=== PATIENT | male | born 1965 | race African-American/Black ===

== ENCOUNTER 2017-11-30 16:22 | Emergency (ER) | payer MEDICAID ==
[~2017-11-30] VITALS: Ht 180.3 cm; Wt 97.4 kg
[2017-11-30 16:25] VITALS: BP 118/75
[2017-11-30] MEDS ORDERED: DIPH,PERTUSS(ACELL),TET VAC/PF 0.5 ML IM-VACC ONE ×2 (17:00→17:14)
[2017-11-30] MEDS ORDERED: LIDOCAINE-MPF 1%, 5ML INFIL ONE (17:00)
[2017-11-30] MEDS ORDERED: LIDOCAINE-MPF 1%, 5ML ONE (17:14)
[2017-11-30] MEDS ORDERED: BACITRACIN ZINC OINT 500U/GM, 0.9 GM ONE (18:05)
== END 2017-11-30 18:38 | disposition home or self-care (01) ==
LOC: ED 18:20
DX: S61.210A Laceration without foreign body of right index finger without damage to nail, initial encounter (principal); F17.200 Nicotine dependence, unspecified, uncomplicated; W45.8XXA Other foreign body or object entering through skin, initial encounter; Y93.89 Activity, other specified; Y99.8 Other external cause status; Y92.009 Unspecified place in unspecified non-institutional (private) residence as the place of occurrence of the external cause
CPT/HCPCS: 12032; 12042; 90471; 90715; 99284